=== PATIENT | male | born 1980 | race Two or more races ===

== ENCOUNTER 2024-10-08 14:27 | Emergency (ER) | payer OTHER ==
[~2024-10-08] VITALS: Ht 180.3 cm; Wt 90.7 kg
[2024-10-08] MEDS ORDERED: SINGULAIR10 MG PO (16:11)
[2024-10-08] MEDS ORDERED: KETOROLAC TROMETHAMINE 30 MG VIAL IM STA (16:53)
[2024-10-08] MEDS ORDERED: KETOROLAC TROMETHAMINE 30 MG VIAL ONE (17:11)
== END 2024-10-08 20:29 | disposition home or self-care (01) ==
LOC: ER 14:39
DX: M54.89 Other dorsalgia (principal); M25.552 Pain in left hip; M25.551 Pain in right hip